=== PATIENT | male | born 1960 | race Caucasian/White ===

== ENCOUNTER 2018-05-12 06:53 | Emergency (ER) | payer OTHER ==
[~2018-05-12] VITALS: Ht 177.8 cm; Wt 77.1 kg
--- NOTE | ~2018-05-12 | EKG ---
[facility] [place] [address] ELECTROCARDIOGRAM REPORT Name: ISABELLA FRANK Room #: [facility]#: [id number] Admission: 05/12/18 Attend Phys: Discharge: Date of : 64 Report #: [id number] THIS REPORT FOR: //name// [facility] ED Test Date: 2018-05-12 Test Time: 07:03:18 Pat Name: ISABELLA FRANK Department: Room: Gender: M [employer]: [id number] : 1960 Requested By: Chantal Pérez Order Number: [id number] MD: Luis Eduardo Lucero Measurements Intervals [place] Rate: 86 P: 57 MT: 261 QRS: 41 QRSD: 87 T: 35 QT: 351 QTc: 420 Interpretive Statements Sinus rhythm Prolonged MT interval Probable anteroseptal infarct, old Baseline wander in lead(s) V3,V4,V5 Compared to ECG 01/31/2009 21:38:07 Septal Q waves are now present Electronically Signed On 05-12-2018 10:40:25 POISER by Luis Eduardo Lucero [email or web address] <ELECTRONICALLY SIGNED> By: Luis Eduardo Lucero MD, [facility] 05/12/18 [id number] Luis Eduardo Lucero MD, [facility] /EPI
[~2018-05-12 06:53] MED LIST: CLEOCIN HCL300 MG PO
[2018-05-12] MEDS ORDERED: WELLBUTRIN 75 M75 M1 PO (07:09)
[2018-05-12] MEDS ORDERED: TOPAMAX 100 MG100 MG PO (07:09)
[2018-05-12 07:36] LABS: ANION GAP 13 mmol/L (7-16); BUN 19 mg/dL (7-18); CALCIUM 9.1 mg/dL (8.5-10.1); CHLORIDE 108 mmol/L (98-107); CO2 19 mmol/L (21-32); CREATININE 1.9 mg/dL (0.7-1.3); GLUCOSE 189 mg/dL (74-106); HEMOGLOBIN 17.5 gm/dL (14.0-18.0); MCH 30.6 pg (26.0-34.0); MCHC 34.3 g/dL (28.0-37.0); MCV 89.2 fL (80.0-100.0); POTASSIUM 4.3 mmol/L (3.5-5.1); RBC 5.72 mil/uL (4.50-6.00); RDW 12.8 % (10.5-14.5)
[2018-05-12 07:38] LABS: SODIUM 140 mmol/L (136-145)
[2018-05-12 07:44] LABS: LIPASE 143 U/L (73-393); SGOT 45 U/L (15-37); SGPT 72 U/L (30-65); TOTAL BILIRUBIN 0.6 mg/dL (<0.1-1.0); TOTAL PROTEIN 7.8 g/dL (6.4-8.2); TROPONIN-I <0.06 ng/mL (<0.06)
[2018-05-12 07:44] LABS: URINE BILIRUBIN NEGATIVE (Negative); URINE BLOOD 3+ (Negative); URINE CLARITY CLEAR; URINE COLOR YELLOW; URINE GLUCOSE-RANDOM* NEGATIVE (Negative); URINE KETONES NEGATIVE (Negative); URINE LEUKOCYTES-REFLEX NEGATIVE (Negative); URINE NITRITE-REFLEX NEGATIVE (Negative); URINE PROTEIN (DIPSTICK) NEGATIVE (Negative); URINE SPECIFIC GRAVITY >= 1.030 (1.005-1.035); URINE UROBILINOGEN 0.2 E.U./dl (0.2-1.0)
[2018-05-12 07:58] LABS: CASTS None Seen /LPF (None Seen); CRYSTALS None Seen /LPF (None Seen); SQUAMOUS None Seen /LPF (0-3); URINE RBC >20 Many /HPF (0-2); URINE WBC-REFLEX 0-5 Rare /HPF (0-5)
[2018-05-12 07:59] LABS: BACTERIA-REFLEX 1-9 Few /HPF (None Seen)
[2018-05-12 10:28] VITALS: BP 124/83
== END 2018-05-12 10:30 | disposition short-term general hospital (02) ==
LOC: ER 06:53
PROVIDERS: Student in an Organized Health Care Education/Training Program
DX: N20.0 Calculus of kidney (principal); N12 Tubulo-interstitial nephritis, not specified as acute or chronic; F17.210 Nicotine dependence, cigarettes, uncomplicated

== ENCOUNTER 2018-06-24 02:03 | Emergency (ER) | payer OTHER ==
[~2018-06-24] VITALS: Ht 170.2 cm; Wt 104.3 kg
[~2018-06-24 02:03] MED LIST changes: +TOPAMAX 100 MG100 MG PO; +WELLBUTRIN 75 M75 M1 PO
[2018-06-24 02:31] LABS: HEMATOCRIT 47.2 % (42.0-52.0); HEMOGLOBIN 16.5 gm/dL (14.0-18.0); MCH 31.2 pg (26.0-34.0); PLATELET COUNT 238 thou/uL (150-400); WBC 6.5 thou/uL (4.0-11.0)
[2018-06-24 02:36] LABS: URINE BILIRUBIN NEGATIVE (Negative); URINE BLOOD NEGATIVE (Negative); URINE CLARITY CLEAR; URINE COLOR YELLOW; URINE GLUCOSE-RANDOM* NEGATIVE (Negative); URINE KETONES NEGATIVE (Negative); URINE LEUKOCYTES-REFLEX NEGATIVE (Negative); URINE NITRITE-REFLEX NEGATIVE (Negative); URINE PROTEIN (DIPSTICK) NEGATIVE (Negative); URINE SPECIFIC GRAVITY 1.015 (1.005-1.035); URINE UROBILINOGEN 0.2 E.U./dl (0.2-1.0)
[2018-06-24 02:39] LABS: CALCIUM 8.7 mg/dL (8.5-10.1); CREATININE 1.2 mg/dL (0.7-1.3); POTASSIUM 4.1 mmol/L (3.5-5.1)
[2018-06-24 02:45] LABS: ALBUMIN 3.5 g/dL (3.4-5.0); TOTAL BILIRUBIN 0.6 mg/dL (<0.1-1.0); TOTAL PROTEIN 7.1 g/dL (6.4-8.2)
[2018-06-24 03:08] LABS: ABSOLUTE NEUTROPHILS 2.8 thou/uL (1.4-8.2)
[2018-06-24 03:10] LABS: LARGE PLATELETS RARE; PLATELET ESTIMATE NORMAL
[2018-06-24 03:58] VITALS: BP 144/96
== END 2018-06-24 03:59 | disposition home or self-care (01) ==
LOC: ER 02:03
PROVIDERS: Emergency Medicine
DX: N50.812 Left testicular pain (principal); F17.210 Nicotine dependence, cigarettes, uncomplicated

== ENCOUNTER 2018-07-05 09:29 | Emergency (ER) | payer OTHER ==
[~2018-07-05] VITALS: Ht 170.2 cm; Wt 99.8 kg
[2018-07-05 10:18] LABS: ABSOLUTE NEUTROPHILS 2.9 thou/uL (1.4-8.2); EOSINOPHILS 2.4 % (0.0-3.0); HEMATOCRIT 48.2 % (42.0-52.0); LYMPHOCYTES 37.1 % (24.0-44.0); MCH 30.8 pg (26.0-34.0); MCHC 35.3 g/dL (28.0-37.0); MCV 87.4 fL (80.0-100.0); MONOCYTES 10.5 % (1.0-8.0); PLATELET COUNT 228 thou/uL (150-400); RBC 5.52 mil/uL (4.50-6.00); RDW 12.9 % (10.5-14.5); WBC 5.9 thou/uL (4.0-11.0)
[2018-07-05 10:24] LABS: CREATININE 1.2 mg/dL (0.7-1.3); POTASSIUM 4.1 mmol/L (3.5-5.1)
[2018-07-05 10:30] LABS: ALBUMIN 3.5 g/dL (3.4-5.0); TOTAL BILIRUBIN 0.7 mg/dL (<0.1-1.0); TOTAL PROTEIN 7.4 g/dL (6.4-8.2)
[2018-07-05 10:30] LABS: URINE BILIRUBIN NEGATIVE (Negative); URINE BLOOD 2+ (Negative); URINE CLARITY CLEAR; URINE COLOR YELLOW; URINE GLUCOSE-RANDOM* NEGATIVE (Negative); URINE KETONES NEGATIVE (Negative); URINE LEUKOCYTES-REFLEX NEGATIVE (Negative); URINE NITRITE-REFLEX NEGATIVE (Negative); URINE PROTEIN (DIPSTICK) NEGATIVE (Negative); URINE SPECIFIC GRAVITY 1.025 (1.005-1.035); URINE UROBILINOGEN 0.2 E.U./dl (0.2-1.0)
[2018-07-05 10:43] LABS: BACTERIA-REFLEX 1-9 Few /HPF (None Seen); CASTS None Seen /LPF (None Seen); CRYSTALS None Seen /LPF (None Seen); SQUAMOUS None Seen /LPF (0-3); URINE WBC-REFLEX 0-5 Rare /HPF (0-5)
[2018-07-05 12:24] VITALS: BP 120/69
== END 2018-07-05 12:25 | disposition home or self-care (01) ==
LOC: ER 09:29
PROVIDERS: Emergency Medicine
DX: R10.31 Right lower quadrant pain (principal); R10.2 Pelvic and perineal pain; F17.210 Nicotine dependence, cigarettes, uncomplicated